=== PATIENT | female | born 1970 | race Caucasian/White ===

== ENCOUNTER → 2024-06-01 17:17 | Outpatient (REF) | payer OTHER, SELFPAY | LOC: WDC 17:17 | PROVIDERS: ATTENDING PHYSICIAN Obstetrics & Gynecology; FAMILY PHYSICIAN Internal Medicine | DX: Z12.31 Encounter for screening mammogram for malignant neoplasm of breast (principal) | CPT/HCPCS: 77063; 77067 ==

== ENCOUNTER → 2024-09-17 07:26 | Outpatient (REF) | payer OTHER, SELFPAY | LOC: RSP 07:26 | PROVIDERS: ATTENDING PHYSICIAN Hospitalist | DX: J30.2 Other seasonal allergic rhinitis (principal) | CPT/HCPCS: 94727; 94729; 88738; 94010 ==

== ENCOUNTER → 2025-03-20 08:19 | Outpatient (REF) | payer OTHER, SELFPAY | LOC: PAVMRI 08:19 | PROVIDERS: ATTENDING PHYSICIAN Orthopaedic Surgery; FAMILY PHYSICIAN Internal Medicine | DX: M25.552 Pain in left hip (principal) | CPT/HCPCS: 73721 ==

== ENCOUNTER → 2025-03-25 14:57 | Outpatient (REF) | payer OTHER, SELFPAY | LOC: HWRAD 14:57 | PROVIDERS: ATTENDING PHYSICIAN Hospitalist; REFERRING PHYSICIAN Internal Medicine Gastroenterology | DX: R13.10 Dysphagia, unspecified (principal) | CPT/HCPCS: 76536 ==

== ENCOUNTER 2025-04-11 18:05 | Inpatient (IN) | payer OTHER, SELFPAY ==
[2025-04-08 23:55] VITALS: BP 113/75
[2025-04-08 23:57] LABS: Glucose - Point of Care 118 mg/dl (70-99)
[2025-04-08 23:58] VITALS: BMI 27.5
[2025-04-09] VITALS (14 sets, daily range): BP systolic 90–134; BP diastolic 58–80; PULSE 73–75; O2SAT 98; BMI 27.7
[2025-04-09 00:07] LABS: Hematocrit 36.0 % (37.0-47.0); Hemoglobin 12.0 g/dL (12.0-16.0); Mean Corp Hgb Conc. 33.3 g/dL (33.0-37.0); Mean Corpuscular Volume 85.1 fL (81.0-99.0); Nucleated Red Blood Cells % 0 %; Platelet Count 227 10^3/uL (130-400); Red Cell Dist. Width 13.0 % (11.5-14.5)
[2025-04-09 00:27] LABS: ALT (SGPT) 15 U/L (0-35); AST (SGOT) 17 U/L (14-36); Albumin 3.8 g/dl (3.5-5.0); Alkaline Phosphatase 61 U/L (38-126); Blood Urea Nitrogen 20 mg/dl (7-17); Calcium 9.2 mg/dl (8.4-10.2); Carbon Dioxide 29 mmol/L (22-30); Chloride 107 mmol/L (98-107); Estimated Creatinine Clearance 62 ml/min; Glucose 110 mg/dl (70-99); Potassium 4.3 mmol/L (3.5-5.1); Sodium 139 mmol/L (135-145); Total Protein 6.0 g/dl (6.3-8.2); eGFR > 60.00
--- NOTE | 2025-04-09 00:35 | ED.GENMED ---
History of Present Illness
<Josué Mak PA-C - Last Filed: 04/09/25 02:44>
General
Chief Complaint: CVA/TIA Symptoms
Source: patient and family
Time Seen by Provider: 04/08/25 23:53
History of Present Illness
History of Present Illness:
54-year-old female with past medical history of migraines and asthma presenting to the emergency department with family for evaluation after around 1130 she got up from the couch and felt suddenly weak and lightheaded describing it as if she were
acutely drunk with family noting patient was having word finding difficulties and seemed to be leaning towards her left. They brought patient immediately to the emergency department where patient's speech has reportedly improved however still
complaining of the lightheaded/drunk sensation. Patient states there is no headache associated with this, focal weakness or numbness, chest pain or shortness of breath visual disturbances, fevers or infectious symptoms, abdominal pain or any other
concerns. No history of similar. Patient states this is different than her typical migraine noting that her migraine is mainly just a frontal headache. Family history was noncontributory for stroke although family does note patient's mother
recently had some type of aortic complication and there is a sister who has cardiac stents. Patient is not on anticoagulant medication. Social history otherwise noncontributory
Past History
<Josué Mak PA-C - Last Filed: 04/09/25 02:44>
Past History
ED Past Medical History: Other (Headaches)
ED Past Surgical History: and Orthopedic
Social History
Tobacco: Non-smoker
Alcohol: Occasional
Drug: None
Personal:
Living: with family
Review of Systems
<Josué Mak PA-C - Last Filed: 04/09/25 02:44>
Review of Systems
All Other Systems: ROS reviewed and negative except as documented in HPI and ROS
Phy Exam
<Josué Mak PA-C - Last Filed: 04/09/25 02:44>
Physical Exam
Physical Exam:
GENERAL: Alert , in no apparent distress but does appear uncomfortable, continuously holding her eyes closed
HEAD: Normocephalic atraumatic
EYE: pupils equal and reactive, 4 mm, EOMI
NECK: Supple, no meningismus
ENT: o/p clr, mmm.
CARDIAC: Regular rate and rhythm .
LUNGS: Clear breath sounds bilaterally, no acute respiratory distress, no wheezes/rales/rhonchi
ABDOMEN: Soft, without focal tenderness, no r/g, no cvat
NEUROLOGICAL: Alert and oriented,, subjective diminished sensation to the right upper extremity, moves all extremities no aphasia or dysarthria, no ataxia
SKIN: Warm and dry, skin intact.
MUSCULOSKELETAL: No edema, well perfused.
PSYCH: Normal and appropriate interaction.
Scores
<Josué Mak PA-C - Last Filed: 04/09/25 02:44>
NIH Stroke Score
Level of Consciousness: 0 - Alert
LOC Questions: 0-Answers both correctly
LOC Commands: 0-Performs both correctly
Best Horizontal Gaze: 0-Normal
Visual Hernandez: 0=Normal, no visual loss
Facial Palsy: 0=Normal, symmetrical
Motor - Right Arm: 0=No drift 10 seconds
Motor - Left Arm: 0=No drift 10 seconds
Motor - Right Le-No drift 5 seconds
Motor - Left Le-No drift 5 seconds
Limb Ataxia: 0-Absent
Sensation: 1-Mild loss
Best Language: 0-No aphasia
Dysarthria: 0-Normal
Extinction and Inattention: 0-No abnormality
NIH Total Score:: 1
Heart Failure Risk
Heart Failure Risk Score: Not Applicable
Heart Score for Chest Pain Patients
STEMI patient?: Not applicable
Withdrawal Assessment of Alcohol
Withdrawal Assessment Completed?: Not applicable
Course
<Josué Mak PA-C - Last Filed: 04/09/25 02:44>
Orders/Labs/Results
Orders:
Orders
04/08/25 23:58
CMP [Comprehensive Metabolic Panel] Urgent
Complete Blood Count/With Diff Urgent
04/08/25 23:59
Electrocardiogram (*1) Urgent
Reason for Study: TIA/Stroke
CT BRAIN PERF STROKE ALERT Urgent
Comment:
Reason For Exam: aphasia, weakness
CT HEAD STROKE ALERT W/o Cont Urgent
Comment:
Reason For Exam: aphasia, weakness
CT HEAD/NECK ANG STROKE ALERT Urgent
Comment:
Reason For Exam: aphasia, weakness
EKG- Treatment ONCE
Troponin I Urgent
04/09/25 00:00
PTT Urgent
Prothrombin Time Urgent
04/09/25 00:35
Aspirin 325 mg PO NOW STA
Clopidogrel Bisulfate [Plavix] 300 mg PO NOW STA
04/09/25 00:44
Pantoprazole [Protonix] 40 mg PO NOW STA
Abnormal Lab Results
04/08/25 04/09/25
23:56 00:00
Hct 36.0 L %
(37.0-47.0)
BUN 20 H mg/dl
(7-17)
Glucose 110 H mg/dl
(70-99)
Total Protein 6.0 L g/dl
(6.3-8.2)
POC Glucose 118 H mg/dl
(70-99)
04/09/25 00:00
04/09/25 00:00
Vital Signs
Initial and Last Documented VS:
Initial Vital Signs
Temp Pulse Resp BP Pulse Ox
97.7 F 81 18 113/75 99
04/08/25 23:55 04/08/25 23:55 04/08/25 23:55 04/08/25 23:55 04/08/25 23:55
Last Documented Vital Signs
Temp Pulse Resp BP Pulse Ox
97.7 F 73 23 99/68 94
04/08/25 23:55 04/09/25 02:00 04/09/25 02:00 04/09/25 02:00 04/09/25 02:00
Hamper Maker Machine consulted with Physician
Hamper Maker Machine consulted with physician?: Yes
Name of Physician Consulted: Dee Dee
<Libra Funez, - Last Filed: 04/09/25 00:45>
Orders/Labs/Results
Orders:
Orders
04/08/25 23:58
CMP [Comprehensive Metabolic Panel] Urgent
Complete Blood Count/With Diff Urgent
04/08/25 23:59
Electrocardiogram (*1) Urgent
Reason for Study: TIA/Stroke
CT BRAIN PERF STROKE ALERT Urgent
Comment:
Reason For Exam: aphasia, weakness
CT HEAD STROKE ALERT W/o Cont Urgent
Comment:
Reason For Exam: aphasia, weakness
CT HEAD/NECK ANG STROKE ALERT Urgent
Comment:
Reason For Exam: aphasia, weakness
EKG- Treatment ONCE
Troponin I Urgent
04/09/25 00:00
PTT Urgent
Prothrombin Time Urgent
04/09/25 00:35
Aspirin 325 mg PO NOW STA
Clopidogrel Bisulfate [Plavix] 300 mg PO NOW STA
04/09/25 00:44
Pantoprazole [Protonix] 40 mg PO NOW STA
Abnormal Lab Results
04/08/25 04/09/25
23:56 00:00
Hct 36.0 L %
(37.0-47.0)
BUN 20 H mg/dl
(7-17)
Glucose 110 H mg/dl
(70-99)
Total Protein 6.0 L g/dl
(6.3-8.2)
POC Glucose 118 H mg/dl
(70-99)
04/09/25 00:00
04/09/25 00:00
Vital Signs
Initial and Last Documented VS:
Initial Vital Signs
Temp Pulse Resp BP Pulse Ox
97.7 F 81 18 113/75 99
04/08/25 23:55 04/08/25 23:55 04/08/25 23:55 04/08/25 23:55 04/08/25 23:55
Last Documented Vital Signs
Temp Pulse Resp BP Pulse Ox
97.7 F 73 23 99/68 94
04/08/25 23:55 04/09/25 02:00 04/09/25 02:00 04/09/25 02:00 04/09/25 02:00
<Josué Mak PA-C - Last Filed: 04/09/25 02:44>
MDM/Problems Addressed
Differential Diagnosis Includes:
- CVA/TIA
- Intracranial bleeding
- Mass/malignancy
- Complex migraine
- Less concern for any acute infectious etiology
- Electrolyte imbalance
- Atypical cardiac presentation
MDM/Problems Addressed:
54-year-old female presenting to the ER for evaluation of sudden onset of lightheadedness described to be a drunk sensation, family reporting patient temporarily aphasic, seems to be fully improved now. Still noting the lightheaded sensation and on
exam does have subjective diminished sensation of the right upper extremity. Stroke alert called. Patient brought immediately to CT scan. Blood sugar 118. Disposition pending but given presentation do suspect patient will need further evaluation
and anticipated admission. Aspirin and Plavix load pending.
<Josué Mak PA-C - Last Filed: 04/09/25 02:44>
*Radiology
Radiology exam reviewed: radiology read reviewed
*Pulse Oximetry
SaO2: 99
Oxygen Mode of Delivery: Room air
Patient hypoxic: no
*EKG
Interpreted by ED Provider?: Yes
Heart Rate: 66
Rate: normal
Rhythm: sinus
[place]: normal axis
Ischemia: no ischemia
*Branch Library Clerk Interpretation
Rate: normal
Heart Rate: 72
Rhythm: sinus
*Critical Care Note
Total Time (30-74mins, 75-104mins- exclusive of procedures): 30
comment:
Critical care statement: A total of 30 minutes of critical care time was provided for this patient. This includes management of unstable vital signs, evaluation of the patient at bedside, reviewing the patient's pertinent medical records, discussion
with consultants, review of old EKGs and review of pertinent medical records. This time with separate from time utilized to perform the aforementioned documented procedures
<Josué Mak PA-C - Last Filed: 04/09/25 02:44>
Patient Management
Discussion with other providers: Hospitalist and Radiologist
Escalation/DeEscalation of care consider admission/obs:
Spoke to radiology who states patient CT scans are negative for any acute intracranial pathology. Aspirin Plavix load given. Patient still noting the lightheadedness sensation and diminished sensation to the right upper extremity. Will admit for
further evaluation and consultation by neurology. Hospitalist team accepts.
ED Attending Note
<Josué Mak PA-C - Last Filed: 04/09/25 02:44>
-
Portions of this chart may have been created with voice recognition software.� Occasional wrong word or��sound alike� substitutions may have occurred due to the inherent limitations of voice recognition software.
<Libra Funez DO - Last Filed: 04/09/25 00:45>
ED Attending Note
Patient seen and examined by attending physician: Yes
I performed the substantive portion of visit, reviewed & personally made and approve the management plan that is documented in note by myself or JESUS.: Yes
I performed a history and physical exam of patient and discussed management with resident, I reviewed resident's note and agree with documented findings and plan of care.: Yes
ED Attending Note:
54-year-old female presenting to the emergency department for strokelike symptoms. Around 11:30 PM, about 45 minutes prior to arrival, patient stood up from a sitting position, got very dizzy and weak. She could not get up. Family noted that her
speech was off. No prior history of stroke in the past. Patient felt that she was having some numbness to the right side of her body. Vital signs normal.
Patient made a stroke alert upon arrival. NIH stroke scale of 1. Patient is awake, alert, oriented. Intact strength bilaterally. Speech is normal. Slight diminished sensation to the right upper extremity comparison to the left, however globally
intact. NIH of 1. Family notes that her symptoms have been improving since arrival to the hospital. For this reason, I do not feel patient candidate for TNK due to improving symptoms and low NIH stroke scale. Suspect TIA. CTs obtained. Plan
for aspirin, Plavix and likely admission for MRI and neurology consultation
Discharge Plan
Departure
Patient Disposition: Admit
Date of Disposition: 04/09/25
Time of Disposition: 01:22
Presentation/result/management discussed w/ accepting MD/DO: Hospitalist
Discharge Problem:
Brain TIA
Prescriptions:
No Action
Digestive Enzyme
1 tab PO DAILY
fluoxetine 10 mg Tablet
10 mg PO DAILY
meloxicam 7.5 mg Tablet
7.5 mg PO DAILY
esomeprazole magnesium [Nexium] 40 mg Capsule,Delayed Release(Dr/Ec)
40 mg PO DAILY
estradiol 0.5 mg Tablet
0.5 mg PO DAILY
methylphenidate HCl 18 mg Tablet Extended Release 24hr
18 mg PO DAILY
progesterone micronized 100 mg Capsule
100 mg PO HS
Nurtec ODT 75 mg Tablet,Disintegrating
75 mg PO ONCE PRN (Reason: migraines)
Ajovy Autoinjector 225 mg/1.5 mL Auto-Injector
225 mg SC QMONTH
cetirizine [Zyrtec] 10 mg Tablet
10 mg PO DAILY
Interventions
Interventions:
*Risk Screen - Suicide Last Done: 04/09/25 00:04
*General Assessment Last Done: 04/09/25 00:04
*Neglect/Abuse Screening Last Done: 04/09/25 00:04
*ED- Fall Risk Assessment Last Done: 04/09/25 00:04
*ED COVID-19 Vaccine History Last Done: 04/09/25 00:04
ED- Cardiac Assessment Last Done: 04/09/25 00:44
ED- Neurological Assessment Last Done: 04/09/25 00:44
ED-Psychological Assessment Last Done: 04/09/25 00:44
ED- Pulmonary Assessment Last Done: 04/09/25 00:44
ED Swallowing Screen Last Done: 04/09/25 00:39
Discharge Date and Time
Print Language: YAKUT
[2025-04-09] MEDS: PLAVIX 300 MG PO (00:40)
[2025-04-09] MEDS: ASPIRIN 325 MG PO (00:40)
[2025-04-09 00:45] LABS: APTT 26.6 Sec (23.4-35.0); INR 0.86; PT 12.2 Sec (11.4-14.6)
[2025-04-09] MEDS: PROTONIX 40 MG PO ×2 (00:47→09:30)
[2025-04-09 00:53] LABS: Troponin I < 0.012 ng/ml
--- NOTE | 2025-04-09 04:37 | HPS.HSE ---
Family Physician
-
Family Physician: NOT KNOW UNKNOWN - PT DOES
Chief Complaint
-
Dizziness
History of Present Illness
Patient is a 54y F with PMH significant for migraines and asthma who presents to ED complaining of dizziness. Patient states that she stood from the couch this evening and became extremely dizzy and unsteady on her feet. She was able to get
back down to the couch without fall / injury. She states that she felt 'drunk' and noted that her speech was somewhat slurred.
Upon further discussion, patient states that she has had similar dizziness for the past 3 weeks or so. She was seen by her PCP who felt that this may be due to tirzepatide which she was taking for weight loss. This was discontinued 3 weeks ago.
Patient states that her symptoms seemed to be gradually improving until this evening.
Patient states that her only new medication is meloxicam which was started for L hip pain / arthritis.
In the ED she keeps her eyes closed due to dizziness. She denies any focal numbness / tingling / etc.
Medical History
Past Medical History
Past Medical History: Reports Other
Additional Past Medical History:
Migraine Headaches
Asthma
Osteoarthritis
GERD
Past Surgical History: Reports Other
Additional Past Surgical History:
UAE
R Knee Arthroscopy
R TKA
Social History
Tobacco: Non-smoker
Alcohol: Occasional
Drug: None
Family History
Family History: Not pertinent
Allergies / Home Medications
Allergies reflects when Allergies were last updated in [facility].
Home Medications with original date entered in [facility]
Allergy/Medication List:
Allergies
Allergy/AdvReac Type Severity Reaction Status Date / Time
codeine Allergy Nausea / Verified 04/08/25 23:55
Vomiting
gluten Allergy Unknown Verified 04/08/25 23:55
latex Allergy Rash Verified 04/08/25 23:55
Home Medications
Digestive Enzyme 1 tab PO DAILY 12/23/16
cetirizine 10 mg tablet (Zyrtec) 10 mg PO DAILY 04/09/25
esomeprazole magnesium 40 mg capsule,delayed release (Nexium) 40 mg PO DAILY 04/09/25
estradiol 0.5 mg tablet 0.5 mg PO DAILY 04/09/25
fluoxetine 10 mg tablet 10 mg PO DAILY 04/09/25
fremanezumab-vfrm 225 mg/1.5 mL subcutaneous auto-injector (Ajovy) 225 mg SC QMONTH 04/09/25
meloxicam 7.5 mg tablet 7.5 mg PO DAILY 04/09/25
methylphenidate HCl 18 mg tablet,extended release 24 hr 18 mg PO DAILY 04/09/25
progesterone micronized 100 mg capsule 100 mg PO HS 04/09/25
rimegepant 75 mg disintegrating tablet (Nurtec ODT) 75 mg PO ONCE PRN migraines 04/09/25
Review of Systems
-
History Source: Patient
A 12 point ROS was completed and negative except as noted: Yes
Constitutional: Reports Fatigue; Denies Fever or Chills
EENT: Denies Sore Throat
Respiratory: Denies Cough or Trouble Breathing
Cardiac: Denies Chest Pain or Palpitations
Abdomen/GI: Denies Abdominal Pain, Nausea, Vomiting or Diarrhea
: Denies Dysuria, Frequency or Flank Pain
Musculoskeletal: Reports Joint Pain; Denies Edema
Neurological: Reports Dizzy and Weakness; Denies Headache
Psych: Denies Depression or Anxiety
Physical Exam
Vital Signs
Vital Signs
Temp Pulse Resp BP Pulse Ox
97.7 F 72 23 99/68 94
04/08/25 23:55 04/09/25 02:45 04/09/25 02:00 04/09/25 02:00 04/09/25 02:45
Physical Exam
General: Other (54y F in mild distress due to dizziness.)
HEENT: Moist mucous membranes and PERRLA
Respiratory: Clear; No Wheezes, Rales or Rhonchi
Cardiac: S1/S2 and Regular Rhythm; No Murmur
GI: Soft, Non Tender, Non Distended and Normal Bowel Sounds
Musculoskeletal: No Clubbing, No Cyanosis and No Edema
Neuro: AO x 3, Nonfocal/grossly intact and Other (Pos horizontal nystagmus.)
Laboratory Results
-
04/09/25 00:00
04/09/25 00:00
Laboratory Results
PT 12.2 Sec (11.4-14.6) 04/09/25 00:00
INR 0.86 04/09/25 00:00
APTT 26.6 Sec (23.4-35.0) 04/09/25 00:00
Total Bilirubin 0.3 mg/dl (0.2-1.3) 04/09/25 00:00
AST 17 U/L (14-36) 04/09/25 00:00
ALT 15 U/L (0-35) 04/09/25 00:00
Alkaline Phosphatase 61 U/L (38-126) 04/09/25 00:00
Troponin I < 0.012 ng/ml 04/09/25 00:00
Impression/Plan
-
A/P: Patient is a 54y F with PMH significant for migraines and asthma who presents to ED complaining of dizziness.
Dizziness
- Observe overnight for further evaluation and treatment.
- Symptoms have been present for several weeks - though worse this evening.
- Low suspicion for CVA, acute process.
- Meclizine PRN. PT / Vestibular therapy evaluation.
- IVFs for low normal BP. Follow orthostatic signs.
- MRI in the AM for completeness. Consult Neuro if any significant findings.
- Follow for clinical improvement.
Rash
- Rash started around the same time as dizziness per patient.
- Only new med is meloxicam - will hold this for now.
Migraine Headaches
- Patient states that current symptoms are not similar to prior migraines.
GERD
- Continue current PPI.
DVT Prophylaxis: SCDs
Code Status: Full
[2025-04-09] MEDS: NSS 1000 IV (06:38)
[2025-04-09] MEDS: ANTIVERT 25 MG PO (06:39)
--- NOTE | 2025-04-09 07:14 | W.PN.HOSP.TC ---
Today's Communication/Plan
-
See plan
Assessment / Plan
Assessment / Plan
Physical Exam
General: Other (54y F in mild distress due to dizziness.)
HEENT: Moist mucous membranes and PERRLA
Respiratory: Clear; No Wheezes, Rales or Rhonchi
Cardiac: S1/S2 and Regular Rhythm; No Murmur
GI: Soft, Non Tender, Non Distended and Normal Bowel Sounds
Musculoskeletal: No Clubbing, No Cyanosis and No Edema
Neuro: AO x 3, Nonfocal/grossly intact and Other (Pos horizontal nystagmus.)
Assessment/Plan
54 y/o female with past medical history significant for migraines and asthma who presented to [facility] ED complaining of dizziness. Patient states that she stood from the couch on the evening of 04/08/25 and became extremely dizzy and unsteady on her
feet. She was able to get back down to the couch without falling or injury. She stated that she felt 'drunk' and noted that her speech was somewhat slurred.
Upon further discussion, patient stated that she has had similar dizziness for the 3 weeks or so prior to presentation. She was seen by her PCP who felt that this could be due to Tirzepatide which she was taking for weight loss. This was
discontinued 3 weeks ago. Patient states that her symptoms seemed to be gradually improving until this evening.
Patient states that her only new medication is meloxicam which was started for L hip pain / arthritis.
In the ED she keeps her eyes closed due to dizziness. She denies any focal numbness / tingling / etc.
Dizziness
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
- Observe overnight for further evaluation and treatment.
- Symptoms have been present for several weeks - though worse on 04/08/25 evening
- Low suspicion for CVA, acute process.
- Meclizine PRN. PT / Vestibular therapy evaluation.
- IVFs for low normal BP. Follow orthostatic signs.
- MRI Brain showed no acute findings
- Follow for clinical improvement.
- Prednisone 50 mg daily for 5 days as per neurology for vestibular neuritis
- Neurology considering LP and EMG given upper extremity numbness sensation
- Patient says she may have had a Tick Bite (she [place] in a park outdoors) -- check Lyme test
Hypotension
- Improved with IV fluids
Anemia
- Check iron studies
Rash
- Rash started around the same time as dizziness per patient.
- Only new med is meloxicam - will hold this for now.
Migraine Headaches
- Patient states that current symptoms are not similar to prior migraines.
GERD
- Continue current PPI.
DVT Prophylaxis: SCDs. Lovenox.
Code Status: Full Code
Anticipated Discharge: 24 - 48 hours
Subjective/Interval History
-
Date of Service: April 09, 2025
Patient was seen and examined. She reported continued significant dizziness and lightheadedness.
Objective Data
-
Labs:
Laboratory Results
04/09/25 04/09/25 04/09/25
00:00 05:49 06:00
WBC 7.9 Pending
Hgb 12.0 Pending
Hct 36.0 L Pending
Plt Count 227 Pending
PT 12.2
INR 0.86
APTT 26.6
Sodium 139 Pending
Potassium 4.3 Pending
Chloride 107 Pending
Carbon Dioxide 29 Pending
BUN 20 H Pending
Creatinine 0.9 Pending
Glucose 110 H Pending
Calcium 9.2 Pending
Total Bilirubin 0.3
AST 17
ALT 15
Alkaline Phosphatase 61
Vital Signs:
Vital Signs
Temp Pulse Resp BP Pulse Ox
98.3 F 73 16 104/65 97
04/09/25 05:56 04/09/25 05:56 04/09/25 05:56 04/09/25 05:56 04/09/25 05:56
[2025-04-09 07:53] LABS: Hematocrit 32.6 % (37.0-47.0); Hemoglobin 11.0 g/dL (12.0-16.0); Mean Corp Hgb Conc. 33.7 g/dL (33.0-37.0); Mean Corpuscular Volume 83.6 fL (81.0-99.0); Platelet Count 194 10^3/uL (130-400); Red Cell Dist. Width 13.2 % (11.5-14.5)
[2025-04-09 08:13] LABS: Blood Urea Nitrogen 20 mg/dl (7-17); Calcium 8.8 mg/dl (8.4-10.2); Carbon Dioxide 25 mmol/L (22-30); Chloride 108 mmol/L (98-107); Estimated Creatinine Clearance 68 ml/min; Glucose 107 mg/dl (70-99); HDL Cholesterol 42 mg/dl; LDL Cholesterol, Calculated 106 mg/dl; Potassium 4.0 mmol/L (3.5-5.1); Sodium 138 mmol/L (135-145); Very Low Density Lipoprotein 14 mg/dl (0-30); eGFR > 60.00
[2025-04-09 09:01] LABS: Glycohemoglobin (HgbA1c) 5.1 % (4.0-5.6)
[2025-04-09] MEDS: LOW STRENGTH ASPIRIN 81 MG PO (09:30)
[2025-04-09] MEDS: DELTASONE 50 MG PO (11:35)
--- NOTE | 2025-04-09 12:11 | CON.NEURO ---
Neuro Assessment/Plan
Assessment
brain MRI w/o and w/ contrast imgs rev'd, normal
acute left sided labyrinthitis with right beating nystagmus which probably began the night before, start prednisone 50 x5 day
with this subacute presentation of progressive cognitive deficits and olfactory hallucinations, and right face/arm numbness, question of encephalitis
check EEG and LP, CT torso cancer screen
check CSF viral PCR, fungal culture, Lyme, crypto, acid fast, send out ARUP serum and CSF autoimmune encephalopathy panel
Consultation
Order
Date of Consultation: 04/10/25
Requesting Provider: Michi Moon
Reason for Consult: vertigo
Subjective/Objective
Subjective Data
Date of Service: April 09, 2025
from h&p:
Patient is a 54y F with PMH significant for migraines and asthma who presents to ED complaining of dizziness. Patient states that she stood from the couch this evening and became extremely dizzy and unsteady on her feet. She was able to get
back down to the couch without fall / injury. She states that she felt 'drunk' and noted that her speech was somewhat slurred.
Upon further discussion, patient states that she has had similar dizziness for the past 3 weeks or so. She was seen by her PCP who felt that this may be due to tirzepatide which she was taking for weight loss. This was discontinued 3 weeks ago.
Patient states that her symptoms seemed to be gradually improving until this evening.
Patient states that her only new medication is meloxicam which was started for L hip pain / arthritis.
In the ED she keeps her eyes closed due to dizziness. She denies any focal numbness / tingling / etc.
+tinnitus fluctuating severity usually left ear. 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 she describes once trying to put her car into gear like with
an old car from decades ago.
Objective Data
Vital Signs
Temp Pulse Resp BP Pulse Ox
36.9 C 78 16 104/68 96
04/10/25 11:08 04/10/25 11:08 04/10/25 11:08 04/10/25 11:08 04/10/25 11:08
Lab Results
04/10/25 06:36
04/10/25 06:36
PT 12.2 Sec (11.4-14.6) 04/09/25 00:00
INR 0.86 04/09/25 00:00
APTT 26.6 Sec (23.4-35.0) 04/09/25 00:00
Sodium 141 mmol/L (135-145) 04/10/25 06:36
Potassium 3.8 mmol/L (3.5-5.1) 04/10/25 06:36
BUN 17 mg/dl (7-17) 04/10/25 06:36
Glucose 101 mg/dl (70-99) H 04/10/25 06:36
Calcium 9.0 mg/dl (8.4-10.2) 04/10/25 06:36
LDL Cholesterol, Calc 106 mg/dl 04/09/25 07:15
Patient Allergies
codeine Allergy (Verified 04/08/25 23:55)
Nausea / Vomiting
gluten Allergy (Verified 04/08/25 23:55)
Unknown
latex Allergy (Verified 04/08/25 23:55)
Rash
Physical Exam
-
AAOx3, speech clear, language intact
VFF, EOMI, constant RIGHT beating nystagmus.
decreased pinprick right face and arm, not extending down into the chest or back.
full strength b/l UE/LE
Medications
-
Active Medications
Generic Name Dose Route Start Last Admin
Trade Name Freq PRN Reason Stop Dose Admin
Acetaminophen 650 mg 04/09/25 05:49
Acetaminophen 325 Mg Tablet PO 05/07/25 05:48
Q4HPRN PRN
Mild Pain / Temp > 101
Aspirin 81 mg 04/09/25 08:00 04/10/25 09:00
Aspirin 81 Mg Chewable Tablet PO 05/07/25 07:59 81 mg
DAILY ROSETTE Administration
Enoxaparin Sodium 40 mg 04/09/25 18:00 04/09/25 17:13
Enoxaparin Sodium 40 Mg/0.4 Ml Syringe SC 05/07/25 17:59 40 mg
QPM ROSETTE Administration
Fluoxetine HCl 10 mg 04/09/25 22:00 04/09/25 20:37
Fluoxetine 10 Mg Capsule PO 05/07/25 21:59 10 mg
HS ROSETTE Administration
Meclizine HCl 25 mg 04/09/25 05:49 04/10/25 07:17
Meclizine 25 Mg Tablet PO 05/07/25 05:48 25 mg
Q8HPRN PRN Administration
Dizziness / nausea
Pantoprazole Sodium 40 mg 04/09/25 08:00 04/10/25 09:00
Pantoprazole 40 Mg Delayed Release Tablet PO 05/07/25 07:59 40 mg
DAILY ROSETTE Administration
Prednisone 50 mg 04/09/25 12:00 04/10/25 09:00
Prednisone 50 Mg Tablet PO 04/13/25 08:01 50 mg
DAILY ROSETTE Administration
Sodium Chloride 0 flush 04/09/25 06:00
Sodium Chloride 0.9% (Flush) Syringe IV 05/07/25 05:59
PER PROTOCOL ROSETTE
Home Medications
�Medication �Instructions �Recorded
Digestive Enzyme 1 tab PO DAILY 12/23/16
cetirizine 10 mg tablet (Zyrtec) 10 mg PO DAILY 04/09/25
esomeprazole magnesium 40 mg 40 mg PO DAILY 04/09/25
capsule,delayed release (Nexium)
estradiol 0.5 mg tablet 0.5 mg PO DAILY 04/09/25
fluoxetine 10 mg tablet 10 mg PO DAILY 04/09/25
fremanezumab-vfrm 225 mg/1.5 mL 225 mg SC QMONTH 04/09/25
subcutaneous auto-injector (Ajovy)
meloxicam 7.5 mg tablet 7.5 mg PO DAILY 04/09/25
methylphenidate HCl 18 mg 18 mg PO DAILY 04/09/25
tablet,extended release 24 hr
progesterone micronized 100 mg 100 mg PO HS 04/09/25
capsule
rimegepant 75 mg disintegrating 75 mg PO ONCE PRN migraines 04/09/25
tablet (Nurtec ODT)
[2025-04-09] MEDS: NSS IV ×2 (15:48→22:30)
[2025-04-09] MEDS: LOVENOX 40 MG SC (17:13)
[2025-04-09] MEDS: PROZAC 10 MG PO (20:37)
[2025-04-10 03:42] VITALS: BP 99/63
[2025-04-10] MEDS: NSS 1000 IV (05:11)
[2025-04-10 06:00] VITALS: BMI 28.8
[2025-04-10] MEDS: ANTIVERT 25 MG PO ×2 (07:17→19:46)
[2025-04-10 07:31] LABS: Hematocrit 32.5 % (37.0-47.0); Hemoglobin 10.8 g/dL (12.0-16.0); Mean Corp Hgb Conc. 33.2 g/dL (33.0-37.0); Mean Corpuscular Volume 85.3 fL (81.0-99.0); Platelet Count 200 10^3/uL (130-400); Red Cell Dist. Width 13.2 % (11.5-14.5)
[2025-04-10 07:47] VITALS: BP 112/71
[2025-04-10 07:57] LABS: Blood Urea Nitrogen 17 mg/dl (7-17); Calcium 9.0 mg/dl (8.4-10.2); Carbon Dioxide 26 mmol/L (22-30); Chloride 110 mmol/L (98-107); Estimated Creatinine Clearance 91 ml/min; Glucose 101 mg/dl (70-99); Iron 85 ug/dl (37-170); Potassium 3.8 mmol/L (3.5-5.1); Sodium 141 mmol/L (135-145); eGFR > 60.00
[2025-04-10 08:08] LABS: Total Iron Binding Capacity 186 ug/dl (265-497)
[2025-04-10 08:25] LABS: Ferritin 54.4 ng/ml (11.1-264.0)
[2025-04-10] MEDS: LOW STRENGTH ASPIRIN 81 MG PO (09:00)
[2025-04-10] MEDS: PROTONIX 40 MG PO (09:00)
[2025-04-10] MEDS: DELTASONE 50 MG PO (09:00)
--- NOTE | 2025-04-10 10:01 | W.PN.HOSP.TC ---
Addendum entered and electronically signed by Michi Moon MD 04/10/25 20:05:
Telemetry finding was artifact, not Atrial Flutter. Cancel cardiology consultation.
Original Note:
Today's Communication/Plan
-
Limbic encephalitis work-up including MRI brain
A-Flutter on tele, consulted cardiology
See plan
Assessment / Plan
Assessment / Plan
Physical Exam
General: Other (54y F in mild distress due to dizziness.)
HEENT: Moist mucous membranes and PERRLA
Respiratory: Clear; No Wheezes, Rales or Rhonchi
Cardiac: S1/S2 and Regular Rhythm; No Murmur
GI: Soft, Non Tender, Non Distended and Normal Bowel Sounds
Musculoskeletal: No Clubbing, No Cyanosis and No Edema
Neuro: AO x 3, Nonfocal/grossly intact and Other (Pos horizontal nystagmus.)
Assessment/Plan
54 y/o female with past medical history significant for migraines and asthma who presented to [facility] ED complaining of dizziness. Patient states that she stood from the couch on the evening of 04/08/25 and became extremely dizzy and unsteady on her
feet. She was able to get back down to the couch without falling or injury. She stated that she felt 'drunk' and noted that her speech was somewhat slurred.
Upon further discussion, patient stated that she has had similar dizziness for the 3 weeks or so prior to presentation. She was seen by her PCP who felt that this could be due to Tirzepatide which she was taking for weight loss. This was
discontinued 3 weeks ago. Patient states that her symptoms seemed to be gradually improving until this evening.
Patient states that her only new medication is meloxicam which was started for L hip pain / arthritis.
In the ED she keeps her eyes closed due to dizziness. She denies any focal numbness / tingling / etc.
Dizziness
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
- Symptoms have been present for several weeks - though worse on 04/08/25 evening
- Low suspicion for CVA, acute process.
- Meclizine PRN. PT / Vestibular therapy evaluation.
- IVFs for low normal BP. Follow orthostatic signs.
- MRI Brain showed no acute findings
- Follow for clinical improvement.
- Prednisone 50 mg daily for 5 days as per neurology for vestibular neuritis
- Neurology mentioned patient will need limbic encephalitis work up: MRI with contrast, EEG, CT torso, LP
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
3 runs of Atrial Flutter -- asymptomatic -- on 04/10/25
-Continue to monitor on telemetry
-Cardiology consulted
Hypotension
- Improved with IV fluids
Anemia
- Iron studies unremarkable
Rash
- Rash started around the same time as dizziness per patient.
- Only new med is meloxicam - will hold this for now.
Migraine Headaches
- Patient states that current symptoms are not similar to prior migraines.
GERD
- Continue current PPI.
DVT Prophylaxis: SCDs. Lovenox.
Code Status: Full Code
Anticipated Discharge: > 48 hours
Subjective/Interval History
-
Date of Service: April 10, 2025
Patient was seen and examined. She still reported having dizziness.
Objective Data
-
Labs:
Laboratory Results
04/10/25
06:36
WBC 11.1 H
Hgb 10.8 L
Hct 32.5 L
Plt Count 200
Sodium 141
Potassium 3.8
Chloride 110 H
Carbon Dioxide 26
BUN 17
Creatinine 0.6
Glucose 101 H
Calcium 9.0
Vital Signs:
Vital Signs
Temp Pulse Resp BP Pulse Ox
98 F 70 16 112/71 96
04/10/25 07:47 04/10/25 07:47 04/10/25 07:47 04/10/25 07:47 04/10/25 07:47
I&O
04/09/25 04/10/25 04/11/25
06:59 06:59 06:59
Intake Total 2620 / 2620
Balance 2620 / 2620
[2025-04-10 11:08] VITALS: BP 104/68
[2025-04-10] MEDS: OMNIPAQUE 50 ML PO (12:48)
--- NOTE | 2025-04-10 15:45 | PTCARENOTE ---
Addendum entered and electronically signed by Emily Crowell MD 04/12/25 11:35:
Discussed with cardiology Dr Almazan reviewed noted rhythm strips determined to be artifacts.
Original Note:
Dr. Moon made aware pt. had 3 runs of Aflutter. Pt. asymptomatic. EKG NSR, pt. resting in bed at this time, call cantrell within reach.
[2025-04-10 15:49] VITALS: BP 129/79
--- NOTE | 2025-04-10 16:43 | CM ---
Alert awake oriented patient who lives with her Edson in a 2 story home with 1 steps to enter and 13 steps to bed/bathroom. She is independent in activates of daily living.She does drive .SPt given advanced directive pkg.Observation letter
given explained.
Had [facility] in past . No SNF hx
Pharmacy [facility]
PCP Dr Jesus
PLAN Home with no needs
--- NOTE | 2025-04-10 16:44 | W.PN.NEURO.1 ---
Today's Communication / Plan
-
CT cancer screen, EEG and LP
Neuro Assessment/Plan
Assessment
brain MRI w/o and w/ contrast imgs rev'd, normal
acute left sided labyrinthitis with right beating nystagmus which probably began the night before, start prednisone 50 x5 day
with this subacute presentation of progressive cognitive deficits and olfactory hallucinations, and right face/arm numbness, question of encephalitis
check EEG and LP, CT torso cancer screen
check CSF viral PCR, fungal culture, Lyme, crypto, acid fast, send out ARUP serum and CSF autoimmune encephalopathy panel
Subjective/Objective
Subjective Data
Date of Service: April 10, 2025
dizziness improving with steroids
Objective Data
Vital Signs
Temp Pulse Resp BP Pulse Ox
37.0 C 69 16 129/79 96
04/10/25 15:49 04/10/25 15:49 04/10/25 15:49 04/10/25 15:49 04/10/25 15:49
Lab Results
04/10/25 06:36
04/10/25 06:36
PT 12.2 Sec (11.4-14.6) 04/09/25 00:00
INR 0.86 04/09/25 00:00
APTT 26.6 Sec (23.4-35.0) 04/09/25 00:00
Sodium 141 mmol/L (135-145) 04/10/25 06:36
Potassium 3.8 mmol/L (3.5-5.1) 04/10/25 06:36
BUN 17 mg/dl (7-17) 04/10/25 06:36
Glucose 101 mg/dl (70-99) H 04/10/25 06:36
Calcium 9.0 mg/dl (8.4-10.2) 04/10/25 06:36
LDL Cholesterol, Calc 106 mg/dl 07/04/25 07:15
Patient Allergies
codeine Allergy (Verified 04/08/25 23:55)
Nausea / Vomiting
gluten Allergy (Verified 04/08/25 23:55)
Unknown
latex Allergy (Verified 04/08/25 23:55)
Rash
Physical Exam
-
AAOx3, speech clear, language intact
VFF, EOMI, constant RIGHT beating nystagmus.
decreased pinprick right face and arm, not extending down into the chest or back.
full strength b/l UE/LE
[2025-04-10] MEDS: LOVENOX 40 MG SC (17:06)
[2025-04-10 19:05] VITALS: BP 116/59
[2025-04-10] MEDS: PROZAC 10 MG PO (21:05)
[2025-04-10 22:35] VITALS: BP 102/62; BP 107/58; BP 108/63; PULSE 67; PULSE 68; PULSE 69
[2025-04-11] VITALS (8 sets, daily range): BP systolic 101–115; BP diastolic 58–72; PULSE 58–83
[2025-04-11] MEDS: TYLENOL 1000 MG PO (01:02)
[2025-04-11] MEDS: LIDOCAINE 4% PATCH 1 PATCH TOPICAL (01:03)
[2025-04-11 08:17] LABS: Hematocrit 33.4 % (37.0-47.0); Hemoglobin 10.7 g/dL (12.0-16.0); Mean Corp Hgb Conc. 32.0 g/dL (33.0-37.0); Mean Corpuscular Volume 86.8 fL (81.0-99.0); Platelet Count 210 10^3/uL (130-400); Red Cell Dist. Width 13.5 % (11.5-14.5)
[2025-04-11 08:49] LABS: Blood Urea Nitrogen 15 mg/dl (7-17); Calcium 9.2 mg/dl (8.4-10.2); Carbon Dioxide 31 mmol/L (22-30); Chloride 108 mmol/L (98-107); Estimated Creatinine Clearance 70 ml/min; Glucose 87 mg/dl (70-99); Potassium 3.7 mmol/L (3.5-5.1); Sodium 140 mmol/L (135-145); eGFR > 60.00
[2025-04-11] MEDS: DELTASONE 50 MG PO (08:56)
[2025-04-11] MEDS: PROTONIX 40 MG PO (08:56)
[2025-04-11] MEDS: LOW STRENGTH ASPIRIN 81 MG PO (08:56)
[2025-04-11] MEDS: REMOVE LIDOCAINE PATCH 1 PATCH REMOVE (08:58)
--- NOTE | 2025-04-11 16:28 | W.PN.HOSP.TC ---
Today's Communication/Plan
-
LP tomorrow
Bowel regimen
Assessment / Plan
Assessment / Plan
Physical Exam
General: Not in acute distress
HEENT: Moist mucous membranes
Respiratory: Clear to Auscultation Bilaterally
Cardiac: S1/S2 and Regular Rhythm
GI: Soft, Non Tender, Non Distended and Normal Bowel Sounds
Musculoskeletal: No Cyanosis and No Edema
Neuro: AO x 3, Nonfocal/grossly intact and Other (Pos horizontal nystagmus.)
Assessment/Plan
54 y/o female with past medical history significant for migraines and asthma who presented to [facility] ED complaining of dizziness. Patient states that she stood from the couch on the evening of 04/08/25 and became extremely dizzy and unsteady on her
feet. She was able to get back down to the couch without falling or injury. She stated that she felt 'drunk' and noted that her speech was somewhat slurred.
Upon further discussion, patient stated that she has had similar dizziness for the 3 weeks or so prior to presentation. She was seen by her PCP who felt that this could be due to Tirzepatide which she was taking for weight loss. This was
discontinued 3 weeks ago. Patient states that her symptoms seemed to be gradually improving until this evening.
Patient states that her only new medication is meloxicam which was started for L hip pain / arthritis.
In the ED she keeps her eyes closed due to dizziness. She denies any focal numbness / tingling / etc.
Dizziness
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
- Symptoms have been present for several weeks - though worse on 04/08/25 evening
- Low suspicion for CVA, acute process.
- Meclizine PRN. PT / Vestibular therapy evaluation.
- IVFs for low normal BP. Follow orthostatic signs.
- MRI Brain showed no acute findings
- Follow for clinical improvement.
- Prednisone 50 mg daily for 5 days as per neurology for vestibular neuritis
- Neurology mentioned patient will need limbic encephalitis work up: MRI with contrast unremarkable, CT torso with no cancer, EEG and LP pending
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
- After neurology and I discussed with patient, patient would like to have LP here before discharge -- LP for tomorrow
Hypotension
- Improved with IV fluids
Anemia
- Iron studies unremarkable
Constipation
Diverticulosis
- Bowel regimen ordered
Rash
- Rash started around the same time as dizziness per patient.
Migraine Headaches
- Patient states that current symptoms are not similar to prior migraines.
- Patient requested to continue her Meloxicam on as needed basis
GERD
- Continue current PPI.
8 mm calcified granuloma within the left upper lobe with calcified lymph nodes in the left hilar and suprahilar region, compatible with previous granulomatous disease.
Three less than 5 mm low-density lesions within the liver, too small to definitively characterize, but likely small cysts, for which no further imaging follow-up is recommended.
2.7 cm enhancing mass arising in the superior uterus, compatible with a fibroid. Multiple peripheral calcifications involving the uterus.
- All as per radiologist from CT Imaging done on 04/10/25
DVT Prophylaxis: SCDs. Lovenox.
Code Status: Full Code
Anticipated Discharge: 24 - 48 hours
Subjective/Interval History
-
Date of Service: April 11, 2025
Patient was seen and examined. She reported persistent dizziness, and also constipation.
Objective Data
-
Labs:
Laboratory Results
04/11/25
07:48
WBC 11.4 H
Hgb 10.7 L
Hct 33.4 L
Plt Count 210
Sodium 140
Potassium 3.7
Chloride 108 H
Carbon Dioxide 31 H
BUN 15
Creatinine 0.8
Glucose 87
Calcium 9.2
Vital Signs:
Vital Signs
Temp Pulse Resp BP Pulse Ox
98.6 F 82 16 114/70 96
04/11/25 15:48 04/11/25 15:48 04/11/25 15:48 04/11/25 15:48 04/11/25 15:48
I&O
04/10/25 04/11/25 04/12/25
06:59 06:59 06:59
Intake Total 2619 660 / 660
Balance 2619 660 / 660
[2025-04-11] MEDS: MIRALAX 17 GRAMS PO (16:37)
[2025-04-11] MEDS: LOVENOX 40 MG SC (16:37)
[2025-04-11] MEDS: SENOKOT-S 1 TABLET PO (20:38)
[2025-04-11] MEDS: PROZAC 10 MG PO (20:42)
[2025-04-12 03:21] VITALS: BP 105/68
[2025-04-12 06:00] VITALS: BMI 28.8
[2025-04-12 07:00] VITALS: BP 113/76
[2025-04-12 07:22] LABS: Hematocrit 32.7 % (37.0-47.0); Hemoglobin 10.7 g/dL (12.0-16.0); Mean Corp Hgb Conc. 32.7 g/dL (33.0-37.0); Mean Corpuscular Volume 85.6 fL (81.0-99.0); Platelet Count 198 10^3/uL (130-400); Red Cell Dist. Width 13.5 % (11.5-14.5)
--- NOTE | 2025-04-12 07:41 | W.PN.HOSP.TC ---
Today's Communication/Plan
-
discharge
Assessment / Plan
Assessment / Plan
Physical Exam
General: Not acute distress, appears relatively comfortable at this time.
HEENT: Moist mucous membranes
Respiratory: Clear to Auscultation Bilaterally
Cardiac: S1/S2 and Regular Rhythm
GI: Soft, Non Tender, Non Distended and Normal Bowel Sounds
Musculoskeletal: No Cyanosis and No Edema
Neuro: AO x 3 conversant coherent
Assessment/Plan
54F Hx Migraines Asthma p/w dizziness. Patient states that she stood from the couch on the evening of 04/08/25 and became extremely dizzy and unsteady on her feet. She was able to get back down to the couch without falling or injury. She stated that
she felt 'drunk' and noted that her speech was somewhat slurred. Upon further discussion, patient stated that she has had similar dizziness for the 3 weeks or so prior to presentation. .
Dizziness Word-Finding Difficulty -- Vestibular neuritis vs labyrinthitis
- Meclizine PRN. PT / Vestibular therapy evaluation appreciated outpt therapy script provided to facilitate
- Orthostatic vitals neg for Hypotension
- MRI Brain showed no acute findings
- Prednisone 50 mg daily for 5 days as per neurology for vestibular neuritis
- CT torso with no cancer, EEG appreciated unremarkable for age
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
- Neuro eval appreciated no need for LP or ASA at this time.
- ECHO appreciated EF 54% normal systolic/diastolic function, no significant valve abn's
Mild Hypotension resolved with IV fluids
Mild Anemia
- Iron studies unremarkable
Constipation
Diverticulosis
-Bowel regimen
Rash
- Rash started around the same time as dizziness per patient. Involving arms and abdomen since resolved.
Migraine Headaches
- Resolved at this time
GERD
- Continue current PPI.
DVT Prophylaxis: SCDs. Lovenox.
Code Status: Full Code
Medically stable for discharge home with outpatient therapy and follow up recommendations.
Total Time Preparing Discharge __40 minutes including examination of the patient, summary of the hospital stay, instructions for continuing care to all relevant caregivers; and preparation of discharge records, prescriptions, and referral
forms if necessary.
Anticipated Discharge: Today
Subjective/Interval History
-
Date of Service: April 12, 2025
No acute distress, symptoms continue to improve. Patient upset with regards to canceled LP but accepted explanation as per neuro, with improving symptoms and normal brain MRI, LP unlikely to yield additional information to warrant risk of procedure
at this time.
Objective Data
-
Labs:
Laboratory Results
04/12/25
06:07
WBC 12.1 H
Hgb 10.7 L
Hct 32.7 L
Plt Count 198
Sodium Pending
Potassium Pending
Chloride Pending
Carbon Dioxide Pending
BUN Pending
Creatinine Pending
Glucose Pending
Calcium Pending
Vital Signs:
Vital Signs
Temp Pulse Resp BP Pulse Ox
97.8 F 69 18 105/68 95
04/12/25 03:21 04/12/25 03:21 04/12/25 03:21 04/12/25 03:21 04/12/25 03:21
I&O
04/11/25 04/12/25 04/13/25
06:59 06:59 06:59
Intake Total 1969 1500 / 1500
Balance 1969 1500 / 1500
[2025-04-12 07:54] LABS: Blood Urea Nitrogen 16 mg/dl (7-17); Calcium 9.1 mg/dl (8.4-10.2); Carbon Dioxide 31 mmol/L (22-30); Chloride 108 mmol/L (98-107); Estimated Creatinine Clearance 80 ml/min; Glucose 96 mg/dl (70-99); Potassium 3.8 mmol/L (3.5-5.1); Sodium 142 mmol/L (135-145); eGFR > 60.00
[2025-04-12] MEDS: LOW STRENGTH ASPIRIN 81 MG PO (09:54)
[2025-04-12] MEDS: SENOKOT-S 1 TABLET PO (09:54)
[2025-04-12] MEDS: PROTONIX 40 MG PO (09:54)
[2025-04-12] MEDS: DELTASONE 50 MG PO (09:54)
[2025-04-12] MEDS: MIRALAX 17 GRAMS PO (09:55)
--- NOTE | 2025-04-12 10:29 | EEG.RPT ---
Electroencephalogram Report
Recording
Date of EE04/12/25
Type of EEG: Routine
Length of EEG recordin minutes
Done with Video Recording: Yes
Patient Status: Inpatient
Recording Conditions: Awake, Drowsy and Asleep
Hyperventilation Performed: No
Photic Stimulation Performed: Yes
Report
LESS THAN 1 HOUR EEG REPORT
LESS THAN 1 HOUR EEG INTERPRETATION:
Unremarkable EEG for age
CLINICAL CORRELATION:
A normal EEG does not rule out a diagnosis of epilepsy. If clinical suspicion for seizure persists, a prolonged recording may be warranted.
Clinical correlation is advised.
METHODS:
A 21 channel digitized electroencephalogram (EEG) was performed using the 10/20 international system of electrode placement and one-lead of ECG recorded. Video was recorded. Persyst quantitative EEG analysis was performed.
ELECTROENCEPHALOGRAPHER IMPRESSION(S):
Quality of study
Good
Background
There was an unremarkable anterior-posterior voltage gradient of alpha frequency.
With eye opening the background activity changed to a low voltage mixture of frequencies.
There were no significant asymmetries of background activity noted.
Sleep
Drowsiness present
Stage I present
Stage 2 present
Hyperventilation
Produced symmetric amplitude increase and mild slowing appropriate to age
Photic Stimulation
Produced driving symmetrically in most flash frequencies
ECG
Normal sinus rhythm
[2025-04-12 11:00] VITALS: BP 109/72; BP 110/69; BP 118/67; PULSE 75; PULSE 78; PULSE 80
[2025-04-12] MEDS: REMOVE LIDOCAINE PATCH REMOVE (11:20)
--- NOTE | 2025-04-12 11:21 | W.PN.NEURO.1 ---
Addendum entered and electronically signed by Shahid Cannon MD 04/12/25 17:48:
Studies reviewed.
I have personally examined the patient. I reviewed and agree with the B[facility]EN[facility] HAND's Note.
My addenda:
Awake, alert, interactive. No acute distress.
Speech intact.
Follows 2-step requests w/o difficulty. No tremor.
Extra-ocular movements grossly intact.
Facial movements full and symmetric. Hearing intact to normal conversational volume.
Normal UE movements bilaterally.
Neck: full ROM.
Chest: no dyspnea
Heart: no JVD
Ext: (-) Clubbing, (-) Cyanosis, (-) Edema
IMPRESSIONS/RECOMMENDATIONS:
Abrupt onset of dizziness, chronic also in nature
Patient more concerned about cognitive dysfunction overall, though not present clearly on exam currently
Outpatient neuropsychological testing
Consider outpatient physical therapy and vestibular therapy
No indication at this time for lumbar puncture
No indication this time for aspirin use
D/W patient
Will continue to follow as needed.
Original Note:
Today's Communication / Plan
-
-no need for LP at this time with normal brain MRI and improvement of symptoms
-Lyme testing pending
-Neuropsychological testing as outpatient
-Continue outpatient migraine medications and follow up with outpatient provider
-can discontinue aspirin no evidence of TIA/Stroke
Neuro Assessment/Plan
Assessment
brain MRI w/o and w/ contrast imgs rev'd, normal
head and neck CTA with no significant arterial stenosis. No aneurysm
acute left sided labyrinthitis with right beating nystagmus which probably began the night before, continue prednisone 50 x5 day
migraine with aura vs fuctional neurologic disorder
Plan
-no need for LP at this time with normal brain MRI and improvement of symptoms
-Lyme testing pending
-Neuropsychological testing as outpatient
-Continue outpatient migraine medications and follow up with outpatient provider
-can discontinue aspirin
Subjective/Objective
Subjective Data
Date of Service: April 12, 2025
No acute events overnight. Feels better today. Has had repeated episodes feeling 'drunk and almost passing out.' Feels like 'two magnets pushing each other in my head.' Also describes having difficulty finding words. Was told she had decreased
sensation to right side of body when she came in but this has resolved. Patient also tells us that she has a history of migraines with dizziness, vision changes and diaphoresis. Currently feeling dizzy. Takes Ajovy as preventative and Nurtec and
Zofran as rescue.
Objective Data
Vital Signs
Temp Pulse Resp BP Pulse Ox
97.3 F 59 16 113/76 96
04/12/25 07:00 04/12/25 07:00 04/12/25 07:00 04/12/25 07:00 04/12/25 07:00
Lab Results
04/12/25 06:07
04/12/25 06:07
PT 12.2 Sec (11.4-14.6) 04/09/25 00:00
INR 0.86 04/09/25 00:00
APTT 26.6 Sec (23.4-35.0) 04/09/25 00:00
Sodium 142 mmol/L (135-145) 04/12/25 06:07
Potassium 3.8 mmol/L (3.5-5.1) 04/12/25 06:07
BUN 16 mg/dl (7-17) 04/12/25 06:07
Glucose 96 mg/dl (70-99) 04/12/25 06:07
Calcium 9.1 mg/dl (8.4-10.2) 04/12/25 06:07
LDL Cholesterol, Calc 106 mg/dl 04/09/25 07:15
Patient Allergies
codeine Allergy (Verified 04/08/25 23:55)
Nausea / Vomiting
gluten Allergy (Verified 04/08/25 23:55)
Unknown
latex Allergy (Verified 04/08/25 23:55)
Rash
Physical Exam
-
General: No Apparent Distress, Comfortable and Appears Stated Age
HEENT: Normocephalic, Atraumatic and Anicteric
Neck: Full Range of Motion
Respiratory: No Dyspnea
Cardiac: No JVD
GI: Non-distended
Skin: Unremarkable
Extremities: No Clubbing, No Cyanosis and No Edema
Psych: Unremarkable
Extended Neurological Exam
Mood & Affect: Mood Unremarkable
Attention Span & Concentration: Awake, Alert, Interactive and No Difficulty with 2 Step Request
Memory: Unremarkable
Tremor: Hand Tremor Absent and Head Tremor Absent
Involuntary Movement: None
Speech: Quality Unremarkable, Quantity Unremarkable and Rate of Production Unremarkable
Cranial Nerve II: Left Eye: Visual Hernandez Grossly Intact
Cranial Nerve II: Right Eye: Visual Hernandez Grossly Intact
Cranial Nerves III, IV, : Extraocular Movement: Extraocular Movement Full in all Directions
Cranial Nerve VII: Facial Symmetry: Normal Facial Symmetry
Cranial Nerve VIII: Hearing: Unremarkable Hearing to Normal Conversational Volume
Muscle Strength, Overall: Full Throughout
Muscle Bulk & Tone: Bulk Unremarkable and Tone Unremarkable
Pronator Drift: No Drift in Upper Extremities and No Drift in Lower Extremities
Coordination: Dcufmg-ovqm-musujc Testing Unremarkable, Reaches for Objects without Difficulty and Ilov-Rdcp-Rmcs movements intact bilaterally
Data Reviewed
-
CT-A: Report Reviewed and Image Reviewed
CT-Perfusion: Report Reviewed and Image Reviewed
CT Head: Report Reviewed and Image Reviewed
MRI Head: Report Reviewed and Image Reviewed
Labs: Report Reviewed
Reviewed with: Physician and Patient
Old Records: Summarized
[2025-04-12 12:33] VITALS: BP 114/74; PULSE 75; O2SAT 97
[2025-04-12 13:59] LABS: Lyme Antibody Screen, EIA Negative (Negative)
[2025-04-12 15:17] VITALS: BP 108/63
[2025-04-12 15:18] VITALS: BP 108/63; BP 108/66; BP 113/66; PULSE 79; PULSE 83; PULSE 84
--- NOTE | 2025-04-12 16:01 | W.DCSUMMARY ---
Discharge Summary
Discharge Data
Date of Admission: 04/11/25
Date of Discharge: 04/12/25
-
Pending Results: Yes (Lyme studies)
Discharge Plan
-
Patient Disposition: Home (Routine Discharge)
Discharge Diagnosis/Procedures: Dizziness Vestibular Neuritis vs Labrynthitis
Condition: Fair
Additional Diets: Gluten Free Diet
Activity: No strenuous activity
Additional Activity: no strenuous activity for one week then advance as tolerated
Driving Restrictions: As prior to admission
Bathing Restrictions: None
Blood Work: Repeat CBC and BMP with primary care provider in 1 week of discharge.
Other Services: PT and OT
Activity Restrictions/Additional Instructions:
Follow up with primary care provider in 1 week of discharge. In 2-4 weeks of discharge, follow up with Neurology, ENT, and Infectious Disease.
Prednisone taper has been prescribed for vestibular neuritis vs Labyrinthitis. 50 mg prednisone prescribed for one more day following discharge then stop.
It is recommended that you hold Zyrtec at this time as jail use may exacerbate dizziness and drowsiness/sedation. Follow up with primary care provider before considering to resume.
Please take medications as prescribed/recommended and follow up with primary care provider and/or other healthcare provider involved in your care for further adjustments to your medication regimen as necessary.
Referrals:
Valentino Hutton, DO [Active, Infectious Diseases] - in two to four weeks
Oren Chavez MD [Active, Neurology] - in two to four weeks
UNKNOWN - PT DOES,NOT KNOW [Family Provider]
Aye Greer MD [Active, Otology] - in two to four weeks
Prescriptions:
New
prednisone 50 mg Tablet
50 mg PO DAILY 1 Days Qty: 1 0RF
Continued
Digestive Enzyme
1 tab PO DAILY
fluoxetine 10 mg Tablet
10 mg PO DAILY
meloxicam 7.5 mg Tablet
7.5 mg PO DAILY
esomeprazole magnesium [Nexium] 40 mg Capsule,Delayed Release(Dr/Ec)
40 mg PO DAILY
estradiol 0.5 mg Tablet
0.5 mg PO DAILY
methylphenidate HCl 18 mg Tablet Extended Release 24hr
18 mg PO DAILY
progesterone micronized 100 mg Capsule
100 mg PO HS
Nurtec ODT 75 mg Tablet,Disintegrating
75 mg PO ONCE PRN (Reason: migraines)
Ajovy Autoinjector 225 mg/1.5 mL Auto-Injector
225 mg SC QMONTH
Held
cetirizine [Zyrtec] 10 mg Tablet
10 mg PO DAILY
Hold Instructions: Follow up with primary care provider or other healthcare provider involved in your care to determine when safe to resume, if necessary to resume, and/or if an alternative agent is recommended instead.
Discharge Orders:
Discharge Patient (As Directed); Ordered 04/12/25
Ordered By: Emily Crowell
Discharge Date and Time
Print Language: TRINIDADIAN
--- NOTE | 2025-04-12 16:53 | CM ---
MD entered order for discharge.
Spoke with patient she said her will drive her home.
She declined VN
PLAN Home no needs
[2025-04-13 23:22] LABS: Lyme Disease DNA by PCR Not Detected; Lyme Source Serum
== END 2025-04-12 17:15 | disposition home or self-care (01) | DRG 98 ==
LOC: 4 EAST ACU 18:05
PROVIDERS: Hospitalist; Physician Assistant Medical; ADMITTING PHYSICIAN Hospitalist; ATTENDING PHYSICIAN Internal Medicine; CONSULT PHYSICIAN Psychiatry & Neurology Clinical Neurophysiology; EMERGENCY PHYSICIAN Student in an Organized Health Care Education/Training Program
DX: G04.90 Encephalitis and encephalomyelitis, unspecified (principal); R44.2 Other hallucinations; G43.909 Migraine, unspecified, not intractable, without status migrainosus; K21.9 Gastro-esophageal reflux disease without esophagitis; H83.09 Labyrinthitis, unspecified ear; R21 Rash and other nonspecific skin eruption
CPT/HCPCS: 0042T; 70450; 70496; 70498; 70551; 70553; 71260; 74177; 80048; 80053; 80061; 82728; 82962; 83036; 83540; 83550; 84443; 84484; 85025; 85027; 85610; 85730; 86618; 87476; 93005; 93306; 95816; 97110; 97112; 97116; 97163; 99291; A9575; Q9967

== ENCOUNTER → 2025-04-19 08:20 | Outpatient (REF) | payer OTHER, SELFPAY | LOC: HWRAD 08:20 | PROVIDERS: ATTENDING PHYSICIAN Obstetrics & Gynecology; FAMILY PHYSICIAN Internal Medicine | DX: D21.9 Benign neoplasm of connective and other soft tissue, unspecified (principal) | CPT/HCPCS: 76830; 76856 ==

== ENCOUNTER 2025-04-21 16:55 | Outpatient (RCR) | payer OTHER, SELFPAY | END 2025-04-21 23:59 | disposition home or self-care (01) | LOC: RPT 16:55 | PROVIDERS: ATTENDING PHYSICIAN Orthopaedic Surgery; FAMILY PHYSICIAN Internal Medicine | DX: R42 Dizziness and giddiness (principal); M76.892 Other specified enthesopathies of left lower limb, excluding foot; M16.12 Unilateral primary osteoarthritis, left hip; Z73.6 Limitation of activities due to disability; M62.81 Muscle weakness (generalized); R26.89 Other abnormalities of gait and mobility | CPT/HCPCS: 97110; 97112; 97163 ==

== ENCOUNTER → 2025-06-02 06:53 | Outpatient (REF) | payer OTHER, SELFPAY | LOC: WDC 06:53 | PROVIDERS: ATTENDING PHYSICIAN Obstetrics & Gynecology; FAMILY PHYSICIAN Hospitalist | DX: Z12.31 Encounter for screening mammogram for malignant neoplasm of breast (principal) | CPT/HCPCS: 77063; 77067 ==

== ENCOUNTER 2025-08-19 06:23 | Day surgery (SDC) | payer OTHER, SELFPAY | END 2025-08-19 15:43 | disposition home or self-care (01) | LOC: GI 06:23 | PROVIDERS: ATTENDING PHYSICIAN Internal Medicine Gastroenterology; FAMILY PHYSICIAN Hospitalist | DX: R13.10 Dysphagia, unspecified (principal); K44.9 Diaphragmatic hernia without obstruction or gangrene; K22.89 Other specified disease of esophagus | CPT/HCPCS: 43239; 88305; 88342 ==